=== PATIENT | male | born 1945 | race Caucasian/White ===

== ENCOUNTER 2017-05-26 12:07 | Inpatient (IN) | payer MEDICARE, OTHER ==
[~2017-05-26] VITALS: Ht 177.8 cm; Wt 116.7 kg
[2017-05-26] MEDS: DIPHENHYDRAMINE 25 MG CAPSULE PO ONE ×2 (02:00→23:43)
[2017-05-26] MEDS ORDERED: methylPREDNISolone SOD SUCC 125 MG/2 ML IVP ONE (14:00)
[2017-05-26] MEDS ORDERED: ALBUTEROL/IPRATROPIUM 2.5MG/0.5MG, 3 ML NPPB SCH (14:00)
[2017-05-26] MEDS ORDERED: SODIUM CHLORIDE FLUSH 10ML SYR IVF ONE (14:00)
[2017-05-26] MEDS ORDERED: ALBUTEROL/IPRATROPIUM 2.5MG/0.5MG, 3 ML ONE (14:08)
[2017-05-26] MEDS ORDERED: methylPREDNISolone SOD SUCC 125 MG/2 ML ONE (14:17)
[2017-05-26 14:22] LABS: BASOPHILS # (AUTO) 0.01 x10^3/uL (0-0.1); BASOPHILS % (AUTO) 0 % (0-1); EOSINOPHILS # (AUTO) 0.04 x10^3/uL (0-0.4); EOSINOPHILS % (AUTO) 1 % (1-7); LYMPHOCYTES # (AUTO) 0.84 x10^3/uL (1-3.4); LYMPHOCYTES % (AUTO) 13 % (22-44); MD NO; MEAN CORPUSCULAR HEMOGLOBIN 32.8 pg (27.5-34.5); MEAN CORPUSCULAR HGB CONC 33.4 g/dL (33.2-36.2); MEAN PLATELET VOLUME 7.4 fL (7.4-10.4); MONOCYTES # (AUTO) 0.76 x10^3/uL (0.2-0.8); MONOCYTES % (AUTO) 11 % (2-9); NEUTROPHILS # (AUTO) 5.09 x10^3/uL (1.8-6.8); NEUTROPHILS % (AUTO) 76 % (42-75); PLATELET COUNT 188 x10^3/uL (130-400); RED BLOOD COUNT 4.48 x10^6/uL (4.38-5.82); RED CELL DISTRIBUTION WIDTH 14.3 % (9.4-14.8)
[2017-05-26] MEDS ORDERED: ATOR-2 PO (14:27)
[2017-05-26] MEDS ORDERED: METO-95 PO (14:27)
[2017-05-26] MEDS ORDERED: AMLO5TAB2 PO (14:27)
[2017-05-26 14:31] LABS: INTERNATIONAL NORMALIZED RATIO 1.09 (0.93-1.1); PROTHROMBIN TIME 11.3 Seconds (9.6-11.5)
[2017-05-26 14:33] LABS: ALBUMIN 3.4 g/dL (3.4-5.0); CALCIUM 9.2 mg/dL (8.5-10.1); CHLORIDE 107 mmol/L (98-107); CREATININE 0.67 mg/dL (0.7-1.3)
[2017-05-26 14:36] LABS: TROPONIN I < 0.015 ng/mL (0.000-0.045)
[2017-05-26 14:38] LABS: ANION GAP 6 mmol/L (5-15)
[2017-05-26] MEDS ORDERED: CEFTRIAXONE PMX 1GM/50ML 50 ML IVPB ONE (16:00)
[2017-05-26] MEDS ORDERED: AZITHROMYCIN 500 MG in SODIUM CHLORIDE 0.9% 250 ML IVPB ONE (16:00)
[2017-05-26] MEDS ORDERED: SODIUM CHLORIDE FLUSH 10ML SYR IVF PRN (16:30)
[2017-05-26] MEDS: SODIUM CHLORIDE 0.9% 1,000 ML IV SCH (16:43)
[2017-05-26] MEDS ORDERED: LABETALOL 5MG/ML, 20ML IVPush PRN (17:00)
[2017-05-26] MEDS ORDERED: POLYETHYLENE GLYCOL 17 GM PACKET PO PRN (17:00)
[2017-05-26] MEDS ORDERED: ONDANSETRON 2MG/ML, 2ML IVPush PRN (17:00)
[2017-05-26] MEDS ORDERED: morphine SULFATE 10 MG/ML, 1ML IVPush PRN (17:00)
[2017-05-26] MEDS ORDERED: BISACODYL 10 MG SUPP PR PRN (17:00)
[2017-05-26] MEDS ORDERED: ENALAPRILAT 1.25 MG/ML, 2ML IVPush PRN (17:00)
[2017-05-26] MEDS ORDERED: HYDROcodone/APAP 5/325 TABLET PO PRN (17:00)
[2017-05-26] MEDS ORDERED: OMNIPAQUE 350 MG/ML, 75ML BOTTLE ONE (17:27)
[2017-05-26] MEDS: ATORVASTATIN 80 MG TABLET PO SCH ×2 (21:00→22:02)
[2017-05-26 21:34] VITALS: BP 170/84
[2017-05-26] MEDS: methylPREDNISolone SOD SUCC 125 MG/2 ML IVPush SCH (22:02)
[2017-05-26] MEDS: ENOXAPARIN 40 MG/0.4 ML SQ SCH (22:03)
[2017-05-26] MEDS: GUAIFENESIN/DM 200-20MG, 10ML UDC PO PRN (22:03)
[2017-05-26 22:30] VITALS: BP 168/92
[2017-05-26] MEDS: ALBUTEROL SULFATE 2.5 MG/3 ML NPPB PRN (22:32)
[2017-05-26] MEDS: ACETAMINOPHEN 325 MG TABLET PO PRN (23:43)
[2017-05-27 03:00] VITALS: BP 189/95
[2017-05-27] MEDS: methylPREDNISolone SOD SUCC 125 MG/2 ML IVPush SCH ×4 (04:19→21:32)
[2017-05-27 05:37] LABS: BASOPHILS % (AUTO) 0 % (0-1); EOSINOPHILS % (AUTO) 0 % (1-7); LYMPHOCYTES # (AUTO) 0.34 x10^3/uL (1-3.4); LYMPHOCYTES % (AUTO) 6 % (22-44); MD NO; MEAN CORPUSCULAR HGB CONC 33.6 g/dL (33.2-36.2); MEAN CORPUSCULAR VOLUME 98.4 fL (81-97); MEAN PLATELET VOLUME 7.4 fL (7.4-10.4); MONOCYTES # (AUTO) 0.07 x10^3/uL (0.2-0.8); MONOCYTES % (AUTO) 1 % (2-9); NEUTROPHILS # (AUTO) 5.11 x10^3/uL (1.8-6.8); NEUTROPHILS % (AUTO) 92 % (42-75); PLATELET COUNT 176 x10^3/uL (130-400); RED BLOOD COUNT 4.17 x10^6/uL (4.38-5.82); RED CELL DISTRIBUTION WIDTH 13.8 % (9.4-14.8)
[2017-05-27 05:41] LABS: CHLORIDE 107 mmol/L (98-107)
[2017-05-27 05:49] LABS: ALANINE AMINOTRANSFERASE 27 U/L (12-78); ALKALINE PHOSPHATASE 79 U/L (45-117); ANION GAP 6 mmol/L (5-15); BILIRUBIN,TOTAL 0.4 mg/dL (0.2-1.0); CALCIUM 8.9 mg/dL (8.5-10.1); CREATININE 0.69 mg/dL (0.7-1.3); TOTAL PROTEIN 6.4 g/dL (6.4-8.2)
[2017-05-27 05:56] LABS: MICROSCOPIC NOT IND
[2017-05-27 05:59] VITALS: BP 147/77
[2017-05-27 05:59] LABS: CULTURE INDICATED? NO
[2017-05-27] MEDS ORDERED: ALBUTEROL/IPRATROPIUM 2.5MG/0.5MG, 3 ML NPPB SCH (07:00)
[2017-05-27] MEDS: SODIUM CHLORIDE 0.9% 1,000 ML IV SCH (09:35)
[2017-05-27] MEDS: ASPIRIN 81 MG TABLET CHEW PO SCH (09:35)
[2017-05-27] MEDS: DOCUSATE 100 MG CAPSULE PO SCH (09:35)
[2017-05-27] MEDS: METOPROLOL SUCCINATE 100 MG TAB.ER.24H PO SCH (09:36)
[2017-05-27] MEDS: AMLODIPINE 5 MG TABLET PO SCH (09:36)
[2017-05-27 09:40] VITALS: BP 154/57
[2017-05-27 13:34] VITALS: BP 159/76
[2017-05-27] MEDS: AZITHROMYCIN 500 MG in SODIUM CHLORIDE 0.9% 250 ML IV SCH (17:02)
[2017-05-27] MEDS: ENOXAPARIN 40 MG/0.4 ML SQ SCH (17:49)
[2017-05-27 20:00] VITALS: BP 157/72
[2017-05-27] MEDS: ATORVASTATIN 80 MG TABLET PO SCH (21:32)
[2017-05-27] MEDS: CEFTRIAXONE 1,000 MG in DEXTROSE 5% 50 ML IV SCH (21:32)
[2017-05-27] MEDS ORDERED: DIPHENHYDRAMINE 25 MG CAPSULE ONE (22:22)
[2017-05-27] MEDS: ACETAMINOPHEN 325 MG TABLET PO PRN (22:28)
[2017-05-27] MEDS: DIPHENHYDRAMINE 25 MG CAPSULE PO PRN (22:29)
[2017-05-27] MEDS: ALBUTEROL SULFATE 2.5 MG/3 ML NPPB PRN (23:44)
[2017-05-28 04:06] VITALS: BP 169/81
[2017-05-28] MEDS: methylPREDNISolone SOD SUCC 125 MG/2 ML IVPush SCH ×4 (04:14→21:01)
[2017-05-28 05:31] LABS: ANION GAP 4 mmol/L (5-15); CALCIUM 8.9 mg/dL (8.5-10.1); CHLORIDE 106 mmol/L (98-107); CREATININE 0.71 mg/dL (0.7-1.3)
[2017-05-28 05:33] LABS: BASOPHILS % (AUTO) 0 % (0-1); EOSINOPHILS % (AUTO) 0 % (1-7); LYMPHOCYTES # (AUTO) 0.43 x10^3/uL (1-3.4); LYMPHOCYTES % (AUTO) 4 % (22-44); MD NO; MEAN CORPUSCULAR HEMOGLOBIN 32.7 pg (27.5-34.5); MEAN CORPUSCULAR HGB CONC 33.1 g/dL (33.2-36.2); MEAN CORPUSCULAR VOLUME 98.8 fL (81-97); MEAN PLATELET VOLUME 7.2 fL (7.4-10.4); MONOCYTES # (AUTO) 0.29 x10^3/uL (0.2-0.8); MONOCYTES % (AUTO) 2 % (2-9); NEUTROPHILS # (AUTO) 11.09 x10^3/uL (1.8-6.8); NEUTROPHILS % (AUTO) 94 % (42-75); PLATELET COUNT 193 x10^3/uL (130-400); RED BLOOD COUNT 4.27 x10^6/uL (4.38-5.82); RED CELL DISTRIBUTION WIDTH 14.1 % (9.4-14.8)
[2017-05-28 08:30] VITALS: BP 158/74
[2017-05-28] MEDS: LISINOPRIL 10 MG TABLET PO SCH (09:18)
[2017-05-28] MEDS: DOCUSATE 100 MG CAPSULE PO SCH (09:18)
[2017-05-28] MEDS: ASPIRIN 81 MG TABLET CHEW PO SCH (09:18)
[2017-05-28] MEDS: AMLODIPINE 5 MG TABLET PO SCH (09:18)
[2017-05-28] MEDS: METOPROLOL SUCCINATE 100 MG TAB.ER.24H PO SCH (09:18)
[2017-05-28] MEDS: GUAIFENESIN/DM 200-20MG, 10ML UDC PO PRN (09:27)
[2017-05-28] MEDS: ALBUTEROL SULFATE 2.5 MG/3 ML NPPB PRN (11:49)
[2017-05-28 14:45] VITALS: BP 143/63
[2017-05-28] MEDS: ALBUTEROL/IPRATROPIUM 2.5MG/0.5MG, 3 ML NPPB SCH ×2 (15:49→19:57)
[2017-05-28] MEDS: ENOXAPARIN 40 MG/0.4 ML SQ SCH (16:14)
[2017-05-28] MEDS: AZITHROMYCIN 500 MG in SODIUM CHLORIDE 0.9% 250 ML IV SCH (16:15)
[2017-05-28 19:26] VITALS: BP 162/72
[2017-05-28] MEDS: ATORVASTATIN 80 MG TABLET PO SCH (21:01)
[2017-05-28] MEDS: ACETAMINOPHEN 325 MG TABLET PO PRN (21:01)
[2017-05-28] MEDS: CEFTRIAXONE 1,000 MG in DEXTROSE 5% 50 ML IV SCH (21:01)
[2017-05-28] MEDS: DIPHENHYDRAMINE 25 MG CAPSULE PO PRN (21:02)
[2017-05-29] MEDS: ALBUTEROL SULFATE 2.5 MG/3 ML NPPB PRN (01:06)
[2017-05-29 01:32] VITALS: BP 174/63
[2017-05-29] MEDS: methylPREDNISolone SOD SUCC 125 MG/2 ML IVPush SCH ×3 (04:08→16:00)
[2017-05-29] MEDS: ALBUTEROL/IPRATROPIUM 2.5MG/0.5MG, 3 ML NPPB SCH ×4 (07:00→14:20)
[2017-05-29 08:10] VITALS: BP 180/92
[2017-05-29 09:30] VITALS: BP 152/76
[2017-05-29] MEDS: ASPIRIN 81 MG TABLET CHEW PO SCH (09:38)
[2017-05-29] MEDS: AMLODIPINE 5 MG TABLET PO SCH (09:38)
[2017-05-29] MEDS: LISINOPRIL 10 MG TABLET PO SCH (09:38)
[2017-05-29] MEDS: DOCUSATE 100 MG CAPSULE PO SCH (09:38)
[2017-05-29] MEDS: METOPROLOL SUCCINATE 100 MG TAB.ER.24H PO SCH (09:38)
[2017-05-29] MEDS ORDERED: LISI-167 PO (15:39)
[2017-05-29] MEDS ORDERED: AZIT250T PO (15:39)
[2017-05-29] MEDS ORDERED: PRED10TA PO (15:39)
[2017-05-29] MEDS ORDERED: AMOX-291 PO (15:39)
[2017-05-29] MEDS: AZITHROMYCIN 500 MG in SODIUM CHLORIDE 0.9% 250 ML IV SCH (16:00)
[2017-05-29 16:33] VITALS: BP 154/92
[2017-05-29] MEDS: ENOXAPARIN 40 MG/0.4 ML SQ SCH (17:00)
== END 2017-05-29 17:44 | disposition home or self-care (01) | DRG 189 ==
LOC: ED 16:01 → EDIP 16:02 → ED 16:14 → 4WST 20:44
PROVIDERS: ADMIT Hospitalist; ATTEND Hospitalist
DX: J96.01 Acute respiratory failure with hypoxia (principal); J15.9 Unspecified bacterial pneumonia; J90 Pleural effusion, not elsewhere classified; I07.1 Rheumatic tricuspid insufficiency; I11.9 Hypertensive heart disease without heart failure; I35.8 Other nonrheumatic aortic valve disorders; J44.0 Chronic obstructive pulmonary disease with (acute) lower respiratory infection; J44.1 Chronic obstructive pulmonary disease with (acute) exacerbation; E78.5 Hyperlipidemia, unspecified; I73.9 Peripheral vascular disease, unspecified; K59.09 Other constipation; R32 Unspecified urinary incontinence; Z80.0 Family history of malignant neoplasm of digestive organs; Z87.01 Personal history of pneumonia (recurrent)
CPT/HCPCS: 36415; 71046; 71260; 80048; 80053; 81003; 82040; 83605; 83880; 84145; 84484; 85025; 85610; 85730; 87040; 93005; 93306; 94640; 96365; 96366; 96368; 96375; J0456; J0696; J1650; J7613; J7620; Q9967; J2930; J7030; J7050; Q0163

== ENCOUNTER 2017-05-30 21:03 | Inpatient (IN) | payer MEDICARE, OTHER ==
[~2017-05-30] VITALS: Ht 177.8 cm; Wt 168.6 kg
[~2017-05-30 21:03] MED LIST: AMLO5TAB2 PO; AMOX-291 PO; ATOR-2 PO; AZIT250T PO; ETOMIDATE 20 MG/10 ML ONE; LISI-167 PO; METO-95 PO; MIDAZOLAM 1 MG/ML, 5ML ONE; PRED10TA PO; PROPOFOL 10 MG/ML, 100ML IV ONE; SUCCINYLCHOLINE 20 MG/ML, 10ML ONE
[2017-05-30] MEDS ORDERED: SODIUM CHLORIDE 0.9% 1,000 ML IV ONE (21:19)
[2017-05-30] MEDS ORDERED: SODIUM CHLORIDE FLUSH 10ML SYR IVF ONE (21:30)
[2017-05-30] MEDS ORDERED: ALBUTEROL/IPRATROPIUM 2.5MG/0.5MG, 3 ML NPPB PRN (21:30)
[2017-05-30] MEDS ORDERED: methylPREDNISolone SOD SUCC 125 MG/2 ML IVP ONE (21:30)
[2017-05-30] MEDS: ALBUTEROL/IPRATROPIUM 2.5MG/0.5MG, 3 ML NPPB SCH (21:47)
[2017-05-30] MEDS ORDERED: methylPREDNISolone SOD SUCC 125 MG/2 ML ONE (21:49)
[2017-05-30 21:54] LABS: BASOPHILS # (AUTO) 0.01 x10^3/uL (0-0.1); BASOPHILS % (AUTO) 0 % (0-1); EOSINOPHILS % (AUTO) 0 % (1-7); LYMPHOCYTES % (AUTO) 5 % (22-44); MD NO; MEAN CORPUSCULAR HEMOGLOBIN 32.5 pg (27.5-34.5); MEAN CORPUSCULAR HGB CONC 32.6 g/dL (33.2-36.2); MEAN CORPUSCULAR VOLUME 99.5 fL (81-97); MEAN PLATELET VOLUME 7.3 fL (7.4-10.4); MONOCYTES # (AUTO) 0.66 x10^3/uL (0.2-0.8); MONOCYTES % (AUTO) 5 % (2-9); NEUTROPHILS # (AUTO) 11.97 x10^3/uL (1.8-6.8); NEUTROPHILS % (AUTO) 90 % (42-75); PLATELET COUNT 249 x10^3/uL (130-400); RED BLOOD COUNT 4.79 x10^6/uL (4.38-5.82); RED CELL DISTRIBUTION WIDTH 14.3 % (9.4-14.8)
[2017-05-30 21:55] LABS: RAPID INFLUENZA A Negative (Negative); RAPID INFLUENZA B Negative (Negative)
[2017-05-30] MEDS ORDERED: CEFEPIME 1 GM in DEXTROSE 5% 50 ML IV ONE (22:00)
[2017-05-30] MEDS ORDERED: AZITHROMYCIN 500 MG in SODIUM CHLORIDE 0.9% 250 ML IV ONE (22:00)
[2017-05-30 22:02] LABS: INTERNATIONAL NORMALIZED RATIO 1.16 (0.93-1.1)
[2017-05-30 22:06] LABS: ALANINE AMINOTRANSFERASE 158 U/L (12-78); ALBUMIN 3.6 g/dL (3.4-5.0); CREATININE 0.76 mg/dL (0.7-1.3)
[2017-05-30 22:11] LABS: ALKALINE PHOSPHATASE 78 U/L (45-117); BILIRUBIN,TOTAL 0.7 mg/dL (0.2-1.0); TOTAL PROTEIN 6.8 g/dL (6.4-8.2); TROPONIN I 0.053 ng/mL (0.000-0.045)
[2017-05-30 22:15] LABS: ANION GAP 3 mmol/L (5-15); CHLORIDE 105 mmol/L (98-107)
[2017-05-30] MEDS ORDERED: ETOMIDATE 20 MG/10 ML IVPush ONE (22:30)
[2017-05-30] MEDS ORDERED: ETOMIDATE 20 MG/10 ML IV ONE (22:30)
[2017-05-30] MEDS ORDERED: SUCCINYLCHOLINE 20 MG/ML, 10ML IVPush ONE (22:30)
[2017-05-30] MEDS: PROPOFOL 100 ML IV PRN (22:40)
[2017-05-30] MEDS ORDERED: SODIUM CHLORIDE FLUSH 10ML SYR IVF PRN (23:00)
[2017-05-30] MEDS ORDERED: SODIUM CHLORIDE 0.9% 1,000ML IVBOLUS ONE (23:00)
[2017-05-30] MEDS ORDERED: MIDAZOLAM 1 MG/ML, 5ML IVP ONE (23:00)
[2017-05-30] MEDS ORDERED: MIDAZOLAM 1 MG/ML, 5ML IVPush ONE (23:30)
[2017-05-31] MEDS: MIDAZOLAM HCL 25 MG in SODIUM CHLORIDE 0.9% 245 ML IV PRN ×3 (00:47→21:47)
[2017-05-31] MEDS ORDERED: SODIUM CHLORIDE 0.9% 1,000 ML IV SCH (01:16)
[2017-05-31] MEDS ORDERED: VANCOMYCIN PMX 1GM/200ML 200 ML IV ONE (01:30)
[2017-05-31] MEDS ORDERED: ONDANSETRON 2MG/ML, 2ML IVPush PRN (01:30)
[2017-05-31] MEDS ORDERED: ACETAMINOPHEN 325 MG TABLET PO PRN (01:30)
[2017-05-31] MEDS ORDERED: DOCUSATE 100 MG CAPSULE PO PRN (01:30)
[2017-05-31] MEDS ORDERED: VANCOMYCIN PER PHARMACY MC PRN (01:30)
[2017-05-31] MEDS ORDERED: VANCOMYCIN 2,200 MG in SODIUM CHLORIDE 0.9% 500 ML IV SCH (02:00)
[2017-05-31] MEDS ORDERED: PHARMACOKINETIC MONITORING MC PRN (02:00)
[2017-05-31] MEDS ORDERED: PHARMACOKINETIC CONSULTATION MC ONE (02:00)
[2017-05-31 02:46] VITALS: BP 162/73
[2017-05-31 02:46] LABS: FREE T4 (FREE THYROXINE) 0.88 ng/dL (0.76-1.46); HEMOGLOBIN A1C 6.3 % (4.2-6.3); THYROID STIMULATING HORMONE 0.553 mIU/L (0.358-3.740)
[2017-05-31] MEDS ORDERED: LIDOCAINE-MPF 1%, 2ML ENDO PRN (03:30)
[2017-05-31] MEDS: SODIUM CHLORIDE 0.9% 1,000 ML IV SCH ×2 (03:30→17:45)
[2017-05-31] MEDS: ALBUTEROL/IPRATROPIUM 2.5MG/0.5MG, 3 ML NPPB SCH ×5 (03:46→18:45)
[2017-05-31 04:00] VITALS: BP 139/68
[2017-05-31] MEDS: PIPERACILLIN/TAZO/PMX 3.375GM 50 ML IV SCH ×4 (04:00→22:13)
[2017-05-31] MEDS: methylPREDNISolone SOD SUCC 125 MG/2 ML IVPush SCH ×4 (04:09→22:14)
[2017-05-31] MEDS: HEPARIN 5,000 UNITS/ML, 1ML SQ SCH ×3 (04:10→20:26)
[2017-05-31] MEDS: hydrALAzine 20 MG/ML, 1ML IVPush PRN (04:30)
[2017-05-31] MEDS: PROPOFOL 100 ML IV PRN ×6 (04:40→21:03)
[2017-05-31 04:51] LABS: TROPONIN I 0.045 ng/mL (0.000-0.045)
[2017-05-31 07:28] LABS: BASOPHILS # (AUTO) 0.01 x10^3/uL (0-0.1); BASOPHILS % (AUTO) 0 % (0-1); EOSINOPHILS % (AUTO) 0 % (1-7); LYMPHOCYTES # (AUTO) 0.45 x10^3/uL (1-3.4); LYMPHOCYTES % (AUTO) 9 % (22-44); MD NO; MEAN CORPUSCULAR HEMOGLOBIN 32.5 pg (27.5-34.5); MEAN CORPUSCULAR HGB CONC 33.4 g/dL (33.2-36.2); MEAN CORPUSCULAR VOLUME 97.3 fL (81-97); MEAN PLATELET VOLUME 7.2 fL (7.4-10.4); MONOCYTES # (AUTO) 0.28 x10^3/uL (0.2-0.8); MONOCYTES % (AUTO) 5 % (2-9); NEUTROPHILS # (AUTO) 4.43 x10^3/uL (1.8-6.8); NEUTROPHILS % (AUTO) 86 % (42-75); PLATELET COUNT 172 x10^3/uL (130-400); RED BLOOD COUNT 4.12 x10^6/uL (4.38-5.82); RED CELL DISTRIBUTION WIDTH 14.6 % (9.4-14.8)
[2017-05-31 07:29] LABS: HEMOGRAM NOTE RECHECKED
[2017-05-31 07:33] LABS: ALBUMIN 2.8 g/dL (3.4-5.0); ANION GAP 6 mmol/L (5-15); CALCIUM 8.4 mg/dL (8.5-10.1); CHLORIDE 107 mmol/L (98-107); CREATININE 0.71 mg/dL (0.7-1.3)
[2017-05-31] MEDS: FAMOTIDINE 20 MG/2 ML IVPush SCH ×2 (10:24→20:26)
[2017-05-31] MEDS: SENNA/DOCUSATE TABLET PO SCH (10:24)
[2017-05-31 11:04] LABS: TROPONIN I 0.034 ng/mL (0.000-0.045)
[2017-05-31] MEDS: QUETIAPINE 25MG TABLET PO SCH ×2 (12:09→20:26)
[2017-05-31 15:11] LABS: CULTURE INDICATED? NO; MICROSCOPIC NOT IND
[2017-05-31] MEDS: morphine SULFATE 10 MG/ML, 1ML IVPush PRN (17:38)
[2017-05-31] MEDS: ATORVASTATIN 80 MG TABLET PO SCH (20:26)
[2017-06-01] MEDS: PROPOFOL 100 ML IV PRN ×5 (01:07→21:32)
[2017-06-01 04:00] VITALS: BP 168/57
[2017-06-01] MEDS: QUETIAPINE 25MG TABLET PO SCH ×3 (04:19→20:53)
[2017-06-01] MEDS: methylPREDNISolone SOD SUCC 125 MG/2 ML IVPush SCH ×4 (04:19→21:29)
[2017-06-01] MEDS: HEPARIN 5,000 UNITS/ML, 1ML SQ SCH ×3 (04:20→20:54)
[2017-06-01] MEDS: PIPERACILLIN/TAZO/PMX 3.375GM 50 ML IV SCH ×4 (04:20→21:29)
[2017-06-01] MEDS: hydrALAzine 20 MG/ML, 1ML IVPush PRN ×2 (04:30→21:05)
[2017-06-01] MEDS: SODIUM CHLORIDE 0.9% 1,000 ML IV SCH ×3 (04:35→21:06)
[2017-06-01] MEDS: VANCOMYCIN 2,000 MG in SODIUM CHLORIDE 0.9% 500 ML IV SCH (04:49)
[2017-06-01 04:58] LABS: BASOPHILS % (AUTO) 0 % (0-1); EOSINOPHILS % (AUTO) 0 % (1-7); LYMPHOCYTES # (AUTO) 0.34 x10^3/uL (1-3.4); LYMPHOCYTES % (AUTO) 7 % (22-44); MD NO; MEAN CORPUSCULAR HEMOGLOBIN 32.9 pg (27.5-34.5); MEAN CORPUSCULAR HGB CONC 33.9 g/dL (33.2-36.2); MEAN CORPUSCULAR VOLUME 97.2 fL (81-97); MEAN PLATELET VOLUME 7.9 fL (7.4-10.4); MONOCYTES # (AUTO) 0.22 x10^3/uL (0.2-0.8); MONOCYTES % (AUTO) 5 % (2-9); NEUTROPHILS # (AUTO) 3.95 x10^3/uL (1.8-6.8); NEUTROPHILS % (AUTO) 88 % (42-75); PLATELET COUNT 170 x10^3/uL (130-400); RED BLOOD COUNT 3.99 x10^6/uL (4.38-5.82); RED CELL DISTRIBUTION WIDTH 14.4 % (9.4-14.8)
[2017-06-01 05:09] LABS: ALBUMIN 2.5 g/dL (3.4-5.0); ANION GAP 7 mmol/L (5-15); CALCIUM 8.1 mg/dL (8.5-10.1); CHLORIDE 109 mmol/L (98-107)
[2017-06-01 05:14] LABS: ALANINE AMINOTRANSFERASE 79 U/L (12-78); ALKALINE PHOSPHATASE 51 U/L (45-117); BILIRUBIN,TOTAL 0.6 mg/dL (0.2-1.0); CHOL/HDL RATIO 3.9; CHOLESTEROL, TOTAL 122 mg/dL (140-239); CREATININE 0.73 mg/dL (0.7-1.3); HDL CHOL % 25 % (26-37); HDL CHOLESTEROL (DIRECT) 31 mg/dL (40-60); LDL CHOLESTEROL,CALCULATED 51 mg/dL (54-169); LDL/HDL RATIO 1.6 (0.5-3.0); TRIGLYCERIDES 201 mg/dL (50-200); VLDL CHOLESTEROL 40 mg/dL (0-25)
[2017-06-01] MEDS: ALBUTEROL/IPRATROPIUM 2.5MG/0.5MG, 3 ML NPPB SCH ×5 (06:47→23:00)
[2017-06-01] MEDS: FAMOTIDINE 20 MG/2 ML IVPush SCH ×2 (09:20→20:54)
[2017-06-01] MEDS: SENNA/DOCUSATE TABLET PO SCH (09:20)
[2017-06-01] MEDS: THIAMINE 100 MG, FOLIC ACID 1 MG, MVI ADULT 10 ML in SODIUM CHLORIDE 0.9% 1,000 ML IV SCH (09:56)
[2017-06-01] MEDS: LISINOPRIL 10 MG TABLET PO SCH (09:57)
[2017-06-01] MEDS: AMLODIPINE 5 MG TABLET PO SCH (09:57)
[2017-06-01] MEDS: ATORVASTATIN 80 MG TABLET PO SCH (20:53)
[2017-06-01] MEDS: OXYcodone IR 5MG TABLET PO PRN (21:05)
[2017-06-02] MEDS: PROPOFOL 100 ML IV PRN ×7 (01:15→20:30)
[2017-06-02] MEDS: OXYcodone IR 5MG TABLET PO PRN ×2 (01:17→21:25)
[2017-06-02] MEDS: POLYETHYLENE GLYCOL 17 GM PACKET PO PRN (01:17)
[2017-06-02] MEDS: ALBUTEROL/IPRATROPIUM 2.5MG/0.5MG, 3 ML INLINE SCH ×3 (02:22→10:52)
[2017-06-02 04:00] VITALS: BP 147/56
[2017-06-02] MEDS: PIPERACILLIN/TAZO/PMX 3.375GM 50 ML IV SCH ×4 (04:15→21:47)
[2017-06-02] MEDS: methylPREDNISolone SOD SUCC 125 MG/2 ML IVPush SCH ×4 (04:16→21:34)
[2017-06-02] MEDS: QUETIAPINE 25MG TABLET PO SCH ×3 (04:16→21:18)
[2017-06-02] MEDS: HEPARIN 5,000 UNITS/ML, 1ML SQ SCH ×3 (04:16→21:19)
[2017-06-02] MEDS: VANCOMYCIN 2,000 MG in SODIUM CHLORIDE 0.9% 500 ML IV SCH (04:52)
[2017-06-02 04:53] LABS: BASOPHILS # (AUTO) 0.01 x10^3/uL (0-0.1); BASOPHILS % (AUTO) 0 % (0-1); EOSINOPHILS % (AUTO) 0 % (1-7); LYMPHOCYTES # (AUTO) 0.27 x10^3/uL (1-3.4); LYMPHOCYTES % (AUTO) 4 % (22-44); MD NO; MEAN CORPUSCULAR HEMOGLOBIN 33.1 pg (27.5-34.5); MEAN CORPUSCULAR HGB CONC 33.6 g/dL (33.2-36.2); MEAN CORPUSCULAR VOLUME 98.7 fL (81-97); MEAN PLATELET VOLUME 8.2 fL (7.4-10.4); MONOCYTES # (AUTO) 0.22 x10^3/uL (0.2-0.8); MONOCYTES % (AUTO) 3 % (2-9); NEUTROPHILS # (AUTO) 6.13 x10^3/uL (1.8-6.8); NEUTROPHILS % (AUTO) 92 % (42-75); PLATELET COUNT 187 x10^3/uL (130-400); RED BLOOD COUNT 3.96 x10^6/uL (4.38-5.82); RED CELL DISTRIBUTION WIDTH 14.4 % (9.4-14.8)
[2017-06-02 04:54] LABS: ALBUMIN 2.3 g/dL (3.4-5.0); ANION GAP 5 mmol/L (5-15); CALCIUM 7.5 mg/dL (8.5-10.1); CHLORIDE 111 mmol/L (98-107)
[2017-06-02 04:59] LABS: ALANINE AMINOTRANSFERASE 60 U/L (12-78); ALKALINE PHOSPHATASE 49 U/L (45-117); BILIRUBIN,TOTAL 0.5 mg/dL (0.2-1.0); CREATININE 0.78 mg/dL (0.7-1.3); TOTAL PROTEIN 4.8 g/dL (6.4-8.2)
[2017-06-02] MEDS: ENALAPRILAT 1.25 MG/ML, 2ML IVPush PRN ×2 (05:39→06:39)
[2017-06-02] MEDS: SODIUM CHLORIDE 0.9% 1,000 ML IV SCH (07:10)
[2017-06-02] MEDS: SENNA/DOCUSATE TABLET PO SCH (07:14)
[2017-06-02] MEDS: LISINOPRIL 10 MG TABLET PO SCH (07:14)
[2017-06-02] MEDS: FAMOTIDINE 20 MG/2 ML IVPush SCH ×2 (07:14→21:18)
[2017-06-02] MEDS: AMLODIPINE 5 MG TABLET PO SCH (07:14)
[2017-06-02] MEDS ORDERED: FUROSEMIDE 20 MG/2 ML IV ONE (08:00)
[2017-06-02 10:20] LABS: ALBUMIN 2.6 g/dL (3.4-5.0)
[2017-06-02] MEDS: THIAMINE 100 MG, FOLIC ACID 1 MG, MVI ADULT 10 ML in SODIUM CHLORIDE 0.9% 1,000 ML IV SCH (10:29)
[2017-06-02] MEDS: hydrALAzine 20 MG/ML, 1ML IVPush PRN (10:29)
[2017-06-02] MEDS ORDERED: LIDOCAINE 1%, 10ML ONE (10:36)
[2017-06-02] MEDS: ALBUTEROL/IPRATROPIUM 2.5MG/0.5MG, 3 ML NPPB SCH ×3 (13:00→23:45)
[2017-06-02] MEDS ORDERED: ALBUTEROL/IPRATROPIUM 2.5MG/0.5MG, 3 ML NPPB PRN (13:00)
[2017-06-02 13:02] LABS: CELLS COUNTED 127
[2017-06-02] MEDS: ACETAMINOPHEN 650 MG/20.3 ML UDC PO PRN (13:58)
[2017-06-02] MEDS ORDERED: LIDOCAINE 2%, 20ML ONE (14:33)
[2017-06-02] MEDS: ATORVASTATIN 80 MG TABLET PO SCH (21:18)
[2017-06-02 22:08] LABS: CULTURE INDICATED? NO; MICROSCOPIC NOT IND
[2017-06-03] MEDS: PROPOFOL 100 ML IV PRN ×8 (00:54→22:28)
[2017-06-03] MEDS: OXYcodone IR 5MG TABLET PO PRN (02:51)
[2017-06-03] MEDS: POLYETHYLENE GLYCOL 17 GM PACKET PO PRN (02:51)
[2017-06-03] MEDS: ALBUTEROL/IPRATROPIUM 2.5MG/0.5MG, 3 ML NPPB SCH ×6 (03:20→23:40)
[2017-06-03 04:00] VITALS: BP 119/56
[2017-06-03 04:22] LABS: BASOPHILS # (AUTO) 0.01 x10^3/uL (0-0.1); BASOPHILS % (AUTO) 0 % (0-1); EOSINOPHILS % (AUTO) 0 % (1-7); LYMPHOCYTES # (AUTO) 0.23 x10^3/uL (1-3.4); LYMPHOCYTES % (AUTO) 5 % (22-44); MD NO; MEAN CORPUSCULAR HEMOGLOBIN 32.7 pg (27.5-34.5); MEAN CORPUSCULAR HGB CONC 33.1 g/dL (33.2-36.2); MEAN CORPUSCULAR VOLUME 98.7 fL (81-97); MEAN PLATELET VOLUME 7.9 fL (7.4-10.4); MONOCYTES # (AUTO) 0.22 x10^3/uL (0.2-0.8); MONOCYTES % (AUTO) 4 % (2-9); NEUTROPHILS # (AUTO) 4.49 x10^3/uL (1.8-6.8); NEUTROPHILS % (AUTO) 91 % (42-75); PLATELET COUNT 183 x10^3/uL (130-400); RED CELL DISTRIBUTION WIDTH 14.6 % (9.4-14.8)
[2017-06-03 04:29] LABS: ALANINE AMINOTRANSFERASE 51 U/L (12-78); ALBUMIN 2.4 g/dL (3.4-5.0); ANION GAP 7 mmol/L (5-15); CALCIUM 7.9 mg/dL (8.5-10.1); CHLORIDE 109 mmol/L (98-107); CREATININE 1.06 mg/dL (0.7-1.3); TRIGLYCERIDES 234 mg/dL (50-200)
[2017-06-03 04:32] LABS: ALKALINE PHOSPHATASE 50 U/L (45-117); BILIRUBIN,TOTAL 0.4 mg/dL (0.2-1.0); VANCOMYCIN,TROUGH 5.9 mcg/mL (5.0-10.0)
[2017-06-03] MEDS: methylPREDNISolone SOD SUCC 125 MG/2 ML IVPush SCH ×4 (04:35→22:22)
[2017-06-03] MEDS: PIPERACILLIN/TAZO/PMX 3.375GM 50 ML IV SCH ×4 (04:35→22:23)
[2017-06-03] MEDS: HEPARIN 5,000 UNITS/ML, 1ML SQ SCH ×3 (04:35→19:51)
[2017-06-03] MEDS: QUETIAPINE 25MG TABLET PO SCH ×3 (04:36→19:51)
[2017-06-03] MEDS: VANCOMYCIN 2,400 MG in SODIUM CHLORIDE 0.9% 500 ML IV SCH (06:31)
[2017-06-03 08:17] LABS: FOLATE LEVEL > 20.0 ng/mL (3.1-17.5)
[2017-06-03] MEDS ORDERED: METOPROLOL 1 MG/ML, 5ML ONE (08:34)
[2017-06-03] MEDS: FAMOTIDINE 20 MG/2 ML IVPush SCH (08:41)
[2017-06-03] MEDS: LISINOPRIL 10 MG TABLET PO SCH (08:42)
[2017-06-03] MEDS: AMLODIPINE 5 MG TABLET PO SCH (08:42)
[2017-06-03] MEDS: SENNA/DOCUSATE TABLET PO SCH (08:42)
[2017-06-03] MEDS ORDERED: METOPROLOL 1 MG/ML, 5ML IVPush ONE (09:00)
[2017-06-03] MEDS ORDERED: DIGOXIN 0.25 MG/ML, 2ML ONE (09:28)
[2017-06-03] MEDS ORDERED: DIGOXIN 0.25 MG/ML, 2ML IVPush ONE (09:30)
[2017-06-03] MEDS: THIAMINE 100 MG, FOLIC ACID 1 MG, MVI ADULT 10 ML in SODIUM CHLORIDE 0.9% 1,000 ML IV SCH (21:04)
[2017-06-03] MEDS: FAMOTIDINE 40 MG/5 ML ORAL SUSP PO SCH (21:05)
[2017-06-03] MEDS: ATORVASTATIN 80 MG TABLET PO SCH (21:10)
[2017-06-04] MEDS: PROPOFOL 100 ML IV PRN ×3 (00:50→06:45)
[2017-06-04] MEDS: morphine SULFATE 10 MG/ML, 1ML IVPush PRN (01:27)
[2017-06-04] MEDS: ALBUTEROL/IPRATROPIUM 2.5MG/0.5MG, 3 ML INLINE SCH ×2 (02:45→06:50)
[2017-06-04 03:04] LABS: CLOSTRIDIUM DIFFICILE ANTIGEN NEGATIVE; CLOSTRIDIUM DIFFICILE TOXIN NEGATIVE (Negative)
[2017-06-04] MEDS: PIPERACILLIN/TAZO/PMX 3.375GM 50 ML IV SCH ×4 (03:41→22:36)
[2017-06-04] MEDS: methylPREDNISolone SOD SUCC 125 MG/2 ML IVPush SCH ×4 (03:42→22:36)
[2017-06-04] MEDS: HEPARIN 5,000 UNITS/ML, 1ML SQ SCH ×3 (03:42→19:30)
[2017-06-04] MEDS: QUETIAPINE 25MG TABLET PO SCH (03:42)
[2017-06-04 04:00] VITALS: BP 177/75
[2017-06-04 04:35] LABS: BASOPHILS # (AUTO) 0.01 x10^3/uL (0-0.1); BASOPHILS % (AUTO) 0 % (0-1); EOSINOPHILS % (AUTO) 0 % (1-7); LYMPHOCYTES # (AUTO) 0.32 x10^3/uL (1-3.4); LYMPHOCYTES % (AUTO) 5 % (22-44); MD NO; MEAN CORPUSCULAR HGB CONC 32.6 g/dL (33.2-36.2); MEAN CORPUSCULAR VOLUME 98.3 fL (81-97); MEAN PLATELET VOLUME 8.1 fL (7.4-10.4); MONOCYTES # (AUTO) 0.28 x10^3/uL (0.2-0.8); MONOCYTES % (AUTO) 4 % (2-9); NEUTROPHILS # (AUTO) 6.26 x10^3/uL (1.8-6.8); NEUTROPHILS % (AUTO) 91 % (42-75); PLATELET COUNT 170 x10^3/uL (130-400); RED BLOOD COUNT 4.18 x10^6/uL (4.38-5.82); RED CELL DISTRIBUTION WIDTH 14.4 % (9.4-14.8)
[2017-06-04] MEDS: VANCOMYCIN 2,400 MG in SODIUM CHLORIDE 0.9% 500 ML IV SCH (06:21)
[2017-06-04] MEDS: SENNA/DOCUSATE TABLET PO SCH (08:04)
[2017-06-04] MEDS: LISINOPRIL 10 MG TABLET PO SCH (08:07)
[2017-06-04] MEDS: FAMOTIDINE 40 MG/5 ML ORAL SUSP PO SCH ×2 (08:07→21:06)
[2017-06-04] MEDS: AMLODIPINE 5 MG TABLET PO SCH (08:07)
[2017-06-04] MEDS: ALPRazolam 1MG TABLET PO SCH ×2 (08:23→08:52)
[2017-06-04] MEDS: FLUCONAZOLE 200 MG/100 ML 100 ML IV SCH (10:14)
[2017-06-04] MEDS ORDERED: RACEPINEPHRINE INH 2.25%, 0.5ML ONE (10:37)
[2017-06-04] MEDS ORDERED: ALBUTEROL/IPRATROPIUM 2.5MG/0.5MG, 3 ML NPPB PRN (11:30)
[2017-06-04] MEDS ORDERED: QUETIAPINE MC SCH (11:30)
[2017-06-04] MEDS ORDERED: QUETIAPINE 25MG TABLET PO PRN (11:30)
[2017-06-04] MEDS ORDERED: ALPRAZOLAM MC SCH (11:30)
[2017-06-04] MEDS: hydrALAzine 20 MG/ML, 1ML IVPush PRN ×2 (15:25→19:30)
[2017-06-04] MEDS ORDERED: ALBUTEROL/IPRATROPIUM 2.5MG/0.5MG, 3 ML INLINE SCH (16:00)
[2017-06-04] MEDS: ALBUTEROL/IPRATROPIUM 2.5MG/0.5MG, 3 ML NPPB SCH ×2 (16:53→19:13)
[2017-06-04] MEDS: METOPROLOL TARTRATE 50 MG TABLET PO SCH (17:06)
[2017-06-04] MEDS: ENALAPRILAT 1.25 MG/ML, 2ML IVPush PRN ×2 (17:06→23:09)
[2017-06-04] MEDS ORDERED: FUROSEMIDE 20 MG/2 ML IV ONE (18:30)
[2017-06-04] MEDS ORDERED: FUROSEMIDE 20 MG/2 ML ONE (18:34)
[2017-06-04] MEDS: THIAMINE 100 MG, FOLIC ACID 1 MG, MVI ADULT 10 ML in SODIUM CHLORIDE 0.9% 1,000 ML IV SCH (20:59)
[2017-06-04] MEDS: ATORVASTATIN 80 MG TABLET PO SCH (21:05)
[2017-06-05] MEDS: hydrALAzine 20 MG/ML, 1ML IVPush PRN ×3 (00:07→18:01)
[2017-06-05] MEDS: OXYcodone IR 5MG TABLET PO PRN (03:44)
[2017-06-05] MEDS ORDERED: QUETIAPINE 25MG TABLET PO PRN (04:00)
[2017-06-05] MEDS: PIPERACILLIN/TAZO/PMX 3.375GM 50 ML IV SCH ×4 (04:11→22:12)
[2017-06-05] MEDS: methylPREDNISolone SOD SUCC 125 MG/2 ML IVPush SCH (04:11)
[2017-06-05] MEDS: HEPARIN 5,000 UNITS/ML, 1ML SQ SCH ×3 (04:12→20:24)
[2017-06-05] MEDS ORDERED: DILTIAZEM 5 MG/ML, 5ML ONE (04:28)
[2017-06-05 04:30] VITALS: BP 132/92
[2017-06-05] MEDS ORDERED: DILTIAZEM 5 MG/ML, 5ML IVPush ONE (04:30)
[2017-06-05] MEDS ORDERED: FUROSEMIDE 20 MG/2 ML IV ONE (04:30)
[2017-06-05] MEDS ORDERED: METOPROLOL 1 MG/ML, 5ML ONE (04:41)
[2017-06-05 05:00] LABS: ALBUMIN 2.6 g/dL (3.4-5.0); ANION GAP 5 mmol/L (5-15); CALCIUM 8.1 mg/dL (8.5-10.1); CHLORIDE 110 mmol/L (98-107)
[2017-06-05] MEDS ORDERED: METOPROLOL 1 MG/ML, 5ML IVPush ONE ×2 (05:00→05:30)
[2017-06-05 05:01] LABS: BASOPHILS % (AUTO) 0 % (0-1); EOSINOPHILS % (AUTO) 0 % (1-7); LYMPHOCYTES # (AUTO) 0.33 x10^3/uL (1-3.4); LYMPHOCYTES % (AUTO) 3 % (22-44); MD NO; MEAN CORPUSCULAR HEMOGLOBIN 32.8 pg (27.5-34.5); MEAN CORPUSCULAR HGB CONC 33.4 g/dL (33.2-36.2); MEAN CORPUSCULAR VOLUME 98.4 fL (81-97); MEAN PLATELET VOLUME 8.3 fL (7.4-10.4); MONOCYTES # (AUTO) 0.43 x10^3/uL (0.2-0.8); MONOCYTES % (AUTO) 3 % (2-9); NEUTROPHILS # (AUTO) 12.11 x10^3/uL (1.8-6.8); NEUTROPHILS % (AUTO) 94 % (42-75); PLATELET COUNT 188 x10^3/uL (130-400); RED BLOOD COUNT 4.76 x10^6/uL (4.38-5.82); RED CELL DISTRIBUTION WIDTH 14.9 % (9.4-14.8)
[2017-06-05 05:03] LABS: ALANINE AMINOTRANSFERASE 57 U/L (12-78); ALKALINE PHOSPHATASE 74 U/L (45-117); BILIRUBIN,TOTAL 0.7 mg/dL (0.2-1.0); CREATININE 0.71 mg/dL (0.7-1.3); TOTAL PROTEIN 5.5 g/dL (6.4-8.2)
[2017-06-05] MEDS ORDERED: AMIODARONE 150 MG in DEXTROSE 5% 100 ML IVPB ONE (05:50)
[2017-06-05] MEDS ORDERED: FILTER 0.22 MICRON IV PRN (06:00)
[2017-06-05] MEDS: METOPROLOL TARTRATE 50 MG TABLET PO SCH ×2 (06:07→17:38)
[2017-06-05] MEDS: AMIODARONE 900 MG in DEXTROSE 5% 482 ML IV PRN (06:34)
[2017-06-05] MEDS: DEXMEDETOMIDINE 200 MCG in SODIUM CHLORIDE 0.9% 48 ML IV PRN ×3 (06:44→21:17)
[2017-06-05] MEDS: SENNA/DOCUSATE TABLET PO SCH (07:21)
[2017-06-05] MEDS: LISINOPRIL 10 MG TABLET PO SCH (07:28)
[2017-06-05] MEDS: ENALAPRILAT 1.25 MG/ML, 2ML IVPush PRN ×2 (07:28→15:00)
[2017-06-05] MEDS: AMLODIPINE 5 MG TABLET PO SCH (07:28)
[2017-06-05] MEDS: FAMOTIDINE 40 MG/5 ML ORAL SUSP PO SCH ×2 (07:28→20:43)
[2017-06-05] MEDS ORDERED: ALPRazolam 1MG TABLET PO PRN (09:00)
[2017-06-05] MEDS: FLUCONAZOLE 200 MG/100 ML 100 ML IV SCH (09:30)
[2017-06-05] MEDS: ALBUTEROL/IPRATROPIUM 2.5MG/0.5MG, 3 ML NPPB SCH ×2 (09:35→15:53)
[2017-06-05] MEDS: QUETIAPINE 25MG TABLET PO SCH ×2 (09:55→20:43)
[2017-06-05] MEDS: methylPREDNISolone SOD SUCC 40 MG/ML IVPush SCH ×2 (12:05→20:24)
[2017-06-05] MEDS: ACETAMINOPHEN 650 MG/20.3 ML UDC PO PRN (15:00)
[2017-06-05] MEDS: ATORVASTATIN 80 MG TABLET PO SCH (20:43)
[2017-06-05] MEDS: THIAMINE 100 MG, FOLIC ACID 1 MG, MVI ADULT 10 ML in SODIUM CHLORIDE 0.9% 1,000 ML IV SCH (21:07)
[2017-06-05] MEDS: ALBUTEROL/IPRATROPIUM 2.5MG/0.5MG, 3 ML INLINE PRN (23:56)
[2017-06-06] MEDS: hydrALAzine 20 MG/ML, 1ML IVPush PRN ×3 (00:39→14:28)
[2017-06-06] MEDS: DEXMEDETOMIDINE 200 MCG in SODIUM CHLORIDE 0.9% 48 ML IV PRN ×2 (02:50→07:24)
[2017-06-06] MEDS: AMIODARONE 900 MG in DEXTROSE 5% 482 ML IV PRN (03:20)
[2017-06-06 04:00] VITALS: BP 182/78
[2017-06-06] MEDS: ENALAPRILAT 1.25 MG/ML, 2ML IVPush PRN ×3 (04:12→23:29)
[2017-06-06] MEDS: PIPERACILLIN/TAZO/PMX 3.375GM 50 ML IV SCH ×4 (04:15→21:04)
[2017-06-06] MEDS: methylPREDNISolone SOD SUCC 40 MG/ML IVPush SCH ×3 (04:16→19:52)
[2017-06-06] MEDS: HEPARIN 5,000 UNITS/ML, 1ML SQ SCH ×3 (04:16→19:53)
[2017-06-06] MEDS: METOPROLOL TARTRATE 50 MG TABLET PO SCH ×2 (05:49→18:34)
[2017-06-06 06:06] LABS: BASOPHILS # (AUTO) 0.04 x10^3/uL (0-0.1); BASOPHILS % (AUTO) 0 % (0-1); EOSINOPHILS % (AUTO) 0 % (1-7); LYMPHOCYTES # (AUTO) 0.39 x10^3/uL (1-3.4); LYMPHOCYTES % (AUTO) 3 % (22-44); MD NO; MEAN CORPUSCULAR HEMOGLOBIN 32.8 pg (27.5-34.5); MEAN CORPUSCULAR HGB CONC 33.3 g/dL (33.2-36.2); MEAN CORPUSCULAR VOLUME 98.4 fL (81-97); MEAN PLATELET VOLUME 8.1 fL (7.4-10.4); MONOCYTES # (AUTO) 0.72 x10^3/uL (0.2-0.8); MONOCYTES % (AUTO) 5 % (2-9); NEUTROPHILS # (AUTO) 14.18 x10^3/uL (1.8-6.8); NEUTROPHILS % (AUTO) 93 % (42-75); PLATELET COUNT 162 x10^3/uL (130-400); RED BLOOD COUNT 4.89 x10^6/uL (4.38-5.82); RED CELL DISTRIBUTION WIDTH 14.3 % (9.4-14.8)
[2017-06-06 06:14] LABS: CHLORIDE 109 mmol/L (98-107)
[2017-06-06 06:29] LABS: ANION GAP 6 mmol/L (5-15); CALCIUM 8.4 mg/dL (8.5-10.1)
[2017-06-06] MEDS ORDERED: LABETALOL 5MG/ML, 20ML ONE (06:41)
[2017-06-06] MEDS ORDERED: LABETALOL 5MG/ML, 20ML IVPush ONE (07:00)
[2017-06-06] MEDS ORDERED: INSULIN ASPART 100 UNITS/ML, PEN SQ-INSULIN SCH (08:00)
[2017-06-06] MEDS: SENNA/DOCUSATE TABLET PO SCH (09:00)
[2017-06-06] MEDS: LISINOPRIL 20 MG TABLET PO SCH (10:07)
[2017-06-06] MEDS: AMLODIPINE 5 MG TABLET PO SCH (10:07)
[2017-06-06] MEDS: FLUCONAZOLE 200 MG/100 ML 100 ML IV SCH (10:07)
[2017-06-06] MEDS: FAMOTIDINE 40 MG/5 ML ORAL SUSP PO SCH ×2 (10:08→19:53)
[2017-06-06] MEDS: AMIODARONE 200 MG TABLET PO SCH ×2 (10:08→19:53)
[2017-06-06] MEDS: FUROSEMIDE 10 MG/ML ORAL SOL NG SCH ×2 (10:08→19:53)
[2017-06-06] MEDS: ZIPRASIDONE 20MG CAPSULE PO SCH ×2 (10:08→19:53)
[2017-06-06] MEDS: INSULIN ASPART 100 UNITS/ML, PEN SQ-INSULIN SCH ×3 (10:09→21:02)
[2017-06-06] MEDS: INSULIN DETEMIR 100 UNITS/ML, PEN SQ-INSULIN SCH ×2 (10:09→21:03)
[2017-06-06] MEDS: ATORVASTATIN 80 MG TABLET PO SCH (19:53)
[2017-06-06] MEDS: THIAMINE 100 MG, FOLIC ACID 1 MG, MVI ADULT 10 ML in SODIUM CHLORIDE 0.9% 1,000 ML IV SCH (21:08)
[2017-06-07] MEDS: hydrALAzine 20 MG/ML, 1ML IVPush PRN ×3 (02:58→17:23)
[2017-06-07] MEDS: PIPERACILLIN/TAZO/PMX 3.375GM 50 ML IV SCH ×4 (03:00→20:57)
[2017-06-07] MEDS: methylPREDNISolone SOD SUCC 40 MG/ML IVPush SCH (03:00)
[2017-06-07] MEDS: HEPARIN 5,000 UNITS/ML, 1ML SQ SCH ×3 (03:00→20:48)
[2017-06-07 04:00] VITALS: BP 155/65
[2017-06-07 04:25] LABS: BASOPHILS % (AUTO) 1 % (0-1); EOSINOPHILS % (AUTO) 0 % (1-7); LYMPHOCYTES # (AUTO) 0.42 x10^3/uL (1-3.4); LYMPHOCYTES % (AUTO) 2 % (22-44); MD NO; MEAN CORPUSCULAR HEMOGLOBIN 32.4 pg (27.5-34.5); MEAN CORPUSCULAR HGB CONC 32.8 g/dL (33.2-36.2); MEAN CORPUSCULAR VOLUME 98.8 fL (81-97); MEAN PLATELET VOLUME 8.1 fL (7.4-10.4); MONOCYTES # (AUTO) 0.64 x10^3/uL (0.2-0.8); MONOCYTES % (AUTO) 4 % (2-9); NEUTROPHILS # (AUTO) 16.51 x10^3/uL (1.8-6.8); NEUTROPHILS % (AUTO) 93 % (42-75); PLATELET COUNT 175 x10^3/uL (130-400); RED BLOOD COUNT 4.91 x10^6/uL (4.38-5.82); RED CELL DISTRIBUTION WIDTH 14.6 % (9.4-14.8)
[2017-06-07] MEDS: INSULIN ASPART 100 UNITS/ML, PEN SQ-INSULIN SCH ×4 (04:58→20:51)
[2017-06-07] MEDS: METOPROLOL TARTRATE 50 MG TABLET PO SCH (04:59)
[2017-06-07 05:44] LABS: ALBUMIN 2.2 g/dL (3.4-5.0); ANION GAP 7 mmol/L (5-15); CALCIUM 8.2 mg/dL (8.5-10.1); CHLORIDE 111 mmol/L (98-107)
[2017-06-07 06:05] LABS: ALANINE AMINOTRANSFERASE 64 U/L (12-78); ALKALINE PHOSPHATASE 79 U/L (45-117); BILIRUBIN,TOTAL 0.7 mg/dL (0.2-1.0); CREATININE 0.74 mg/dL (0.7-1.3); TOTAL PROTEIN 5.2 g/dL (6.4-8.2)
[2017-06-07] MEDS: FAMOTIDINE 40 MG/5 ML ORAL SUSP PO SCH ×2 (07:42→20:56)
[2017-06-07] MEDS: FUROSEMIDE 10 MG/ML ORAL SOL NG SCH (07:42)
[2017-06-07] MEDS: INSULIN DETEMIR 100 UNITS/ML, PEN SQ-INSULIN SCH ×2 (07:42→20:47)
[2017-06-07] MEDS: ENALAPRILAT 1.25 MG/ML, 2ML IVPush PRN ×2 (08:00→15:33)
[2017-06-07] MEDS: ZIPRASIDONE 20MG CAPSULE PO SCH ×2 (08:01→20:55)
[2017-06-07] MEDS: LISINOPRIL 20 MG TABLET PO SCH ×2 (08:02→20:55)
[2017-06-07] MEDS: AMIODARONE 200 MG TABLET PO SCH ×2 (08:02→20:56)
[2017-06-07] MEDS: SENNA/DOCUSATE TABLET PO SCH (08:02)
[2017-06-07] MEDS: AMLODIPINE 5 MG TABLET PO SCH (08:02)
[2017-06-07] MEDS: FLUCONAZOLE 200 MG/100 ML 100 ML IV SCH (09:03)
[2017-06-07] MEDS: FOLIC ACID 1 MG TABLET PO SCH (10:20)
[2017-06-07] MEDS: THIAMINE 100MG TABLET PO SCH (10:20)
[2017-06-07] MEDS: MULTIVITAMIN 1 TABLET PO SCH (10:20)
[2017-06-07] MEDS: CARVEDILOL 12.5 MG TABLET PO SCH (17:23)
[2017-06-07] MEDS: ATORVASTATIN 80 MG TABLET PO SCH (20:55)
[2017-06-07] MEDS: FUROSEMIDE 40 MG/4 ML IV SCH (20:56)
[2017-06-08] MEDS: ENALAPRILAT 1.25 MG/ML, 2ML IVPush PRN (01:01)
[2017-06-08 04:00] VITALS: BP 174/81
[2017-06-08 04:32] LABS: MEAN CORPUSCULAR HEMOGLOBIN 32.2 pg (27.5-34.5); MEAN CORPUSCULAR HGB CONC 32.8 g/dL (33.2-36.2); MEAN CORPUSCULAR VOLUME 98.2 fL (81-97); MEAN PLATELET VOLUME 8.1 fL (7.4-10.4); PLATELET COUNT 191 x10^3/uL (130-400); RED BLOOD COUNT 4.81 x10^6/uL (4.38-5.82); RED CELL DISTRIBUTION WIDTH 14.6 % (9.4-14.8)
[2017-06-08] MEDS: INSULIN ASPART 100 UNITS/ML, PEN SQ-INSULIN SCH ×4 (04:48→20:49)
[2017-06-08] MEDS: HEPARIN 5,000 UNITS/ML, 1ML SQ SCH ×3 (04:56→19:53)
[2017-06-08] MEDS: CARVEDILOL 12.5 MG TABLET PO SCH ×2 (04:56→17:08)
[2017-06-08] MEDS: PIPERACILLIN/TAZO/PMX 3.375GM 50 ML IV SCH ×3 (04:58→18:01)
[2017-06-08 05:02] LABS: BASOPHILS # (AUTO) 0.11 x10^3/uL (0-0.1); BASOPHILS % (AUTO) 1 % (0-1); EOSINOPHILS % (AUTO) 0 % (1-7); LYMPHOCYTES # (AUTO) 0.73 x10^3/uL (1-3.4); LYMPHOCYTES % (AUTO) 4 % (22-44); MD SCAN; MONOCYTES # (AUTO) 1.17 x10^3/uL (0.2-0.8); MONOCYTES % (AUTO) 6 % (2-9); NEUTROPHILS % (AUTO) 90 % (42-75)
[2017-06-08 07:28] LABS: ALANINE AMINOTRANSFERASE 69 U/L (12-78); ALBUMIN 2.3 g/dL (3.4-5.0); ANION GAP 8 mmol/L (5-15); CALCIUM 8.3 mg/dL (8.5-10.1); CHLORIDE 108 mmol/L (98-107); CREATININE 0.82 mg/dL (0.7-1.3)
[2017-06-08 07:30] LABS: ALKALINE PHOSPHATASE 76 U/L (45-117); BILIRUBIN,TOTAL 0.7 mg/dL (0.2-1.0); TOTAL PROTEIN 5.2 g/dL (6.4-8.2)
[2017-06-08] MEDS: INSULIN DETEMIR 100 UNITS/ML, PEN SQ-INSULIN SCH ×2 (07:48→19:54)
[2017-06-08] MEDS: AMLODIPINE 5 MG TABLET PO SCH (08:36)
[2017-06-08] MEDS: THIAMINE 100MG TABLET PO SCH (08:37)
[2017-06-08] MEDS: AMIODARONE 200 MG TABLET PO SCH ×2 (08:37→20:37)
[2017-06-08] MEDS: FOLIC ACID 1 MG TABLET PO SCH (08:37)
[2017-06-08] MEDS: LISINOPRIL 20 MG TABLET PO SCH ×2 (08:37→20:37)
[2017-06-08] MEDS: FLUCONAZOLE 200 MG/100 ML 100 ML IV SCH (08:38)
[2017-06-08] MEDS: DOXAZOSIN 2MG TABLET PO SCH (08:38)
[2017-06-08] MEDS: SENNA/DOCUSATE TABLET PO SCH (08:38)
[2017-06-08] MEDS: MULTIVITAMIN 1 TABLET PO SCH ×2 (09:00→17:11)
[2017-06-08 09:35] LABS: O2 FLOW 5 L/min
[2017-06-08 13:45] LABS: CULTURE INDICATED? YES; MICROSCOPIC INDICATED
[2017-06-08] MEDS: ATORVASTATIN 80 MG TABLET PO SCH (20:37)
[2017-06-09] MEDS: hydrALAzine 20 MG/ML, 1ML IVPush PRN (00:22)
[2017-06-09] MEDS: PIPERACILLIN/TAZO/PMX 3.375GM 50 ML IV SCH ×5 (00:22→23:57)
[2017-06-09 04:00] VITALS: BP 159/68
[2017-06-09 04:28] LABS: BASOPHILS # (AUTO) 0.01 x10^3/uL (0-0.1); BASOPHILS % (AUTO) 0 % (0-1); EOSINOPHILS # (AUTO) 0.05 x10^3/uL (0-0.4); EOSINOPHILS % (AUTO) 0 % (1-7); LYMPHOCYTES # (AUTO) 1.06 x10^3/uL (1-3.4); LYMPHOCYTES % (AUTO) 9 % (22-44); MD NO; MEAN CORPUSCULAR HEMOGLOBIN 32.3 pg (27.5-34.5); MEAN CORPUSCULAR HGB CONC 32.5 g/dL (33.2-36.2); MEAN CORPUSCULAR VOLUME 99.2 fL (81-97); MEAN PLATELET VOLUME 8.1 fL (7.4-10.4); MONOCYTES # (AUTO) 0.85 x10^3/uL (0.2-0.8); MONOCYTES % (AUTO) 7 % (2-9); NEUTROPHILS # (AUTO) 9.45 x10^3/uL (1.8-6.8); NEUTROPHILS % (AUTO) 83 % (42-75); PLATELET COUNT 142 x10^3/uL (130-400); RED BLOOD COUNT 4.09 x10^6/uL (4.38-5.82); RED CELL DISTRIBUTION WIDTH 14.4 % (9.4-14.8)
[2017-06-09 04:43] LABS: ALBUMIN 2.1 g/dL (3.4-5.0); ANION GAP 2 mmol/L (5-15); CHLORIDE 111 mmol/L (98-107)
[2017-06-09 04:47] LABS: ALANINE AMINOTRANSFERASE 63 U/L (12-78); ALKALINE PHOSPHATASE 51 U/L (45-117); BILIRUBIN,TOTAL 0.6 mg/dL (0.2-1.0); CREATININE 0.63 mg/dL (0.7-1.3); TOTAL PROTEIN 4.5 g/dL (6.4-8.2)
[2017-06-09] MEDS: HEPARIN 5,000 UNITS/ML, 1ML SQ SCH ×3 (05:11→20:06)
[2017-06-09] MEDS: CARVEDILOL 12.5 MG TABLET PO SCH ×2 (05:55→17:45)
[2017-06-09] MEDS: INSULIN ASPART 100 UNITS/ML, PEN SQ-INSULIN SCH ×4 (06:03→21:21)
[2017-06-09] MEDS: INSULIN DETEMIR 100 UNITS/ML, PEN SQ-INSULIN SCH ×2 (08:03→20:08)
[2017-06-09] MEDS: FUROSEMIDE 40 MG/4 ML IV SCH ×2 (09:00→16:50)
[2017-06-09] MEDS: SENNA/DOCUSATE TABLET PO SCH (09:00)
[2017-06-09] MEDS: FLUCONAZOLE 200 MG/100 ML 100 ML IV SCH (09:00)
[2017-06-09] MEDS: AMIODARONE 200 MG TABLET PO SCH ×2 (09:22→21:21)
[2017-06-09] MEDS: AMLODIPINE 5 MG TABLET PO SCH (09:23)
[2017-06-09] MEDS: FOLIC ACID 1 MG TABLET PO SCH (09:23)
[2017-06-09] MEDS: MULTIVITAMIN 1 TABLET PO SCH (09:23)
[2017-06-09] MEDS: LISINOPRIL 20 MG TABLET PO SCH ×2 (09:24→21:21)
[2017-06-09] MEDS: THIAMINE 100MG TABLET PO SCH (09:24)
[2017-06-09] MEDS: DOXAZOSIN 2MG TABLET PO SCH (09:26)
[2017-06-09] MEDS: ATORVASTATIN 80 MG TABLET PO SCH (21:20)
[2017-06-10] MEDS: HEPARIN 5,000 UNITS/ML, 1ML SQ SCH (03:35)
[2017-06-10 04:00] VITALS: BP 121/58
[2017-06-10 04:15] LABS: BASOPHILS # (AUTO) 0.01 x10^3/uL (0-0.1); BASOPHILS % (AUTO) 0 % (0-1); EOSINOPHILS # (AUTO) 0.14 x10^3/uL (0-0.4); EOSINOPHILS % (AUTO) 2 % (1-7); LYMPHOCYTES # (AUTO) 0.83 x10^3/uL (1-3.4); LYMPHOCYTES % (AUTO) 9 % (22-44); MD NO; MEAN CORPUSCULAR HEMOGLOBIN 32.7 pg (27.5-34.5); MEAN CORPUSCULAR HGB CONC 32.9 g/dL (33.2-36.2); MEAN CORPUSCULAR VOLUME 99.2 fL (81-97); MEAN PLATELET VOLUME 7.9 fL (7.4-10.4); MONOCYTES # (AUTO) 0.66 x10^3/uL (0.2-0.8); MONOCYTES % (AUTO) 7 % (2-9); NEUTROPHILS % (AUTO) 83 % (42-75); PLATELET COUNT 127 x10^3/uL (130-400); RED CELL DISTRIBUTION WIDTH 14.1 % (9.4-14.8)
[2017-06-10] MEDS: CARVEDILOL 12.5 MG TABLET PO SCH (05:47)
[2017-06-10] MEDS: INSULIN ASPART 100 UNITS/ML, PEN SQ-INSULIN SCH ×4 (05:49→20:57)
[2017-06-10] MEDS: PIPERACILLIN/TAZO/PMX 3.375GM 50 ML IV SCH ×3 (05:49→17:57)
[2017-06-10] MEDS: FUROSEMIDE 40 MG/4 ML IV SCH ×2 (07:12→17:42)
[2017-06-10] MEDS: INSULIN DETEMIR 100 UNITS/ML, PEN SQ-INSULIN SCH (07:22)
[2017-06-10] MEDS: THIAMINE 100MG TABLET PO SCH (08:28)
[2017-06-10] MEDS: SENNA/DOCUSATE TABLET PO SCH (08:28)
[2017-06-10] MEDS: MULTIVITAMIN 1 TABLET PO SCH (08:28)
[2017-06-10] MEDS: FOLIC ACID 1 MG TABLET PO SCH (08:28)
[2017-06-10] MEDS: AMIODARONE 200 MG TABLET PO SCH ×2 (08:29→20:54)
[2017-06-10] MEDS: DOXAZOSIN 2MG TABLET PO SCH (08:29)
[2017-06-10] MEDS: AMLODIPINE 5 MG TABLET PO SCH (08:29)
[2017-06-10] MEDS: LISINOPRIL 20 MG TABLET PO SCH ×2 (08:29→20:55)
[2017-06-10] MEDS: FLUCONAZOLE 200 MG/100 ML 100 ML IV SCH (09:38)
[2017-06-10 10:36] LABS: HIT RESULT NEGATIVE (NEGATIVE)
[2017-06-10] MEDS: ALBUTEROL/IPRATROPIUM 2.5MG/0.5MG, 3 ML INLINE PRN (16:52)
[2017-06-10] MEDS: CARVEDILOL 6.25 MG TABLET PO SCH (17:57)
[2017-06-10 18:04] LABS: ANION GAP 3 mmol/L (5-15); CHLORIDE 108 mmol/L (98-107); CREATININE 0.53 mg/dL (0.7-1.3)
[2017-06-10] MEDS ORDERED: ALBUTEROL/IPRATROPIUM 2.5MG/0.5MG, 3 ML NPPB PRN (20:00)
[2017-06-10] MEDS: ATORVASTATIN 80 MG TABLET PO SCH (20:54)
[2017-06-11] MEDS: PIPERACILLIN/TAZO/PMX 3.375GM 50 ML IV SCH ×4 (00:26→19:03)
[2017-06-11 04:17] LABS: BASOPHILS # (AUTO) 0.04 x10^3/uL (0-0.1); BASOPHILS % (AUTO) 0 % (0-1); EOSINOPHILS # (AUTO) 0.17 x10^3/uL (0-0.4); EOSINOPHILS % (AUTO) 2 % (1-7); LYMPHOCYTES % (AUTO) 11 % (22-44); MD NO; MEAN CORPUSCULAR HEMOGLOBIN 31.6 pg (27.5-34.5); MEAN CORPUSCULAR HGB CONC 32.4 g/dL (33.2-36.2); MEAN CORPUSCULAR VOLUME 97.6 fL (81-97); MEAN PLATELET VOLUME 8.6 fL (7.4-10.4); MONOCYTES # (AUTO) 0.62 x10^3/uL (0.2-0.8); MONOCYTES % (AUTO) 7 % (2-9); NEUTROPHILS # (AUTO) 7.15 x10^3/uL (1.8-6.8); NEUTROPHILS % (AUTO) 80 % (42-75); PLATELET COUNT 131 x10^3/uL (130-400); RED BLOOD COUNT 3.92 x10^6/uL (4.38-5.82); RED CELL DISTRIBUTION WIDTH 13.7 % (9.4-14.8)
[2017-06-11 04:34] LABS: ALBUMIN 2.2 g/dL (3.4-5.0); ANION GAP 0 mmol/L (5-15); CHLORIDE 103 mmol/L (98-107)
[2017-06-11 04:37] LABS: ALANINE AMINOTRANSFERASE 69 U/L (12-78); ALKALINE PHOSPHATASE 55 U/L (45-117); CREATININE 0.65 mg/dL (0.7-1.3)
[2017-06-11] MEDS: CARVEDILOL 6.25 MG TABLET PO SCH ×2 (05:45→21:12)
[2017-06-11] MEDS: INSULIN ASPART 100 UNITS/ML, PEN SQ-INSULIN SCH ×3 (07:00→21:00)
[2017-06-11] MEDS: FUROSEMIDE 40 MG/4 ML IV SCH ×2 (08:30→19:03)
[2017-06-11] MEDS: THIAMINE 100MG TABLET PO SCH (08:41)
[2017-06-11] MEDS: DOXAZOSIN 2MG TABLET PO SCH (08:41)
[2017-06-11] MEDS: MULTIVITAMIN 1 TABLET PO SCH (08:41)
[2017-06-11] MEDS: FOLIC ACID 1 MG TABLET PO SCH (08:41)
[2017-06-11] MEDS: AMIODARONE 200 MG TABLET PO SCH ×2 (08:42→21:12)
[2017-06-11] MEDS: SENNA/DOCUSATE TABLET PO SCH (08:42)
[2017-06-11] MEDS: LISINOPRIL 20 MG TABLET PO SCH ×2 (08:42→21:12)
[2017-06-11] MEDS: AMLODIPINE 5 MG TABLET PO SCH (08:42)
[2017-06-11] MEDS ORDERED: HALOPERIDOL 5 MG/ML IVPush ONE (09:00)
[2017-06-11] MEDS: POTASSIUM CHLORIDE 20 MEQ TAB.ER.PRT PO SCH ×2 (09:22→12:50)
[2017-06-11] MEDS ORDERED: HALOPERIDOL 5 MG/ML IV ONE (10:00)
[2017-06-11] MEDS: HEPARIN 5,000 UNITS/ML, 1ML SQ SCH ×2 (12:50→21:12)
[2017-06-11] MEDS: ZIPRASIDONE 20 MG INJ IM PRN ×2 (13:48→16:14)
[2017-06-11] MEDS ORDERED: INSULIN LISPRO 100 UNITS/ML, PEN SQ-INSULIN SCH (16:00)
[2017-06-11] MEDS: ATORVASTATIN 80 MG TABLET PO SCH (21:12)
[2017-06-11] MEDS: hydrALAzine 20 MG/ML, 1ML IVPush PRN (23:19)
[2017-06-11] MEDS: morphine SULFATE 10 MG/ML, 1ML IVPush PRN (23:23)
[2017-06-12] MEDS: PIPERACILLIN/TAZO/PMX 3.375GM 50 ML IV SCH ×4 (00:38→20:48)
[2017-06-12 03:59] VITALS: BP 120/40
[2017-06-12] MEDS: HEPARIN 5,000 UNITS/ML, 1ML SQ SCH ×3 (04:30→20:48)
[2017-06-12 05:35] LABS: BASOPHILS # (AUTO) 0.02 x10^3/uL (0-0.1); BASOPHILS % (AUTO) 0 % (0-1); EOSINOPHILS # (AUTO) 0.13 x10^3/uL (0-0.4); EOSINOPHILS % (AUTO) 2 % (1-7); LYMPHOCYTES # (AUTO) 0.86 x10^3/uL (1-3.4); LYMPHOCYTES % (AUTO) 11 % (22-44); MD NO; MEAN CORPUSCULAR HEMOGLOBIN 32.8 pg (27.5-34.5); MEAN CORPUSCULAR HGB CONC 33.4 g/dL (33.2-36.2); MEAN CORPUSCULAR VOLUME 98.2 fL (81-97); MEAN PLATELET VOLUME 8.1 fL (7.4-10.4); MONOCYTES # (AUTO) 0.58 x10^3/uL (0.2-0.8); MONOCYTES % (AUTO) 7 % (2-9); NEUTROPHILS # (AUTO) 6.29 x10^3/uL (1.8-6.8); NEUTROPHILS % (AUTO) 80 % (42-75); PLATELET COUNT 113 x10^3/uL (130-400); RED BLOOD COUNT 3.53 x10^6/uL (4.38-5.82); RED CELL DISTRIBUTION WIDTH 14.1 % (9.4-14.8)
[2017-06-12] MEDS: CARVEDILOL 6.25 MG TABLET PO SCH ×2 (05:46→17:00)
[2017-06-12 05:52] LABS: ANION GAP 2 mmol/L (5-15); CALCIUM 7.8 mg/dL (8.5-10.1); CHLORIDE 106 mmol/L (98-107); CREATININE 0.75 mg/dL (0.7-1.3)
[2017-06-12] MEDS: INSULIN ASPART 100 UNITS/ML, PEN SQ-INSULIN SCH ×4 (06:12→21:01)
[2017-06-12] MEDS: FUROSEMIDE 40 MG/4 ML IV SCH ×2 (08:57→17:00)
[2017-06-12] MEDS: MULTIVITAMIN 1 TABLET PO SCH (08:57)
[2017-06-12] MEDS: LISINOPRIL 20 MG TABLET PO SCH ×2 (08:57→20:48)
[2017-06-12] MEDS: AMIODARONE 200 MG TABLET PO SCH ×2 (08:57→20:48)
[2017-06-12] MEDS: THIAMINE 100MG TABLET PO SCH (08:58)
[2017-06-12] MEDS: FOLIC ACID 1 MG TABLET PO SCH (08:58)
[2017-06-12] MEDS: DOXAZOSIN 2MG TABLET PO SCH (08:58)
[2017-06-12] MEDS: AMLODIPINE 5 MG TABLET PO SCH (08:58)
[2017-06-12] MEDS: SENNA/DOCUSATE TABLET PO SCH (08:59)
[2017-06-12] MEDS: ATORVASTATIN 80 MG TABLET PO SCH (20:48)
[2017-06-12] MEDS: morphine SULFATE 10 MG/ML, 1ML IVPush PRN (21:48)
[2017-06-13] MEDS: PIPERACILLIN/TAZO/PMX 3.375GM 50 ML IV SCH ×2 (01:40→08:33)
[2017-06-13 03:41] VITALS: BP 114/42
[2017-06-13 04:25] LABS: ANION GAP 3 mmol/L (5-15); CALCIUM 7.7 mg/dL (8.5-10.1); CHLORIDE 103 mmol/L (98-107)
[2017-06-13 04:31] LABS: MEAN CORPUSCULAR HEMOGLOBIN 32.6 pg (27.5-34.5); MEAN CORPUSCULAR HGB CONC 33.5 g/dL (33.2-36.2); MEAN CORPUSCULAR VOLUME 97.4 fL (81-97); RED BLOOD COUNT 3.28 x10^6/uL (4.38-5.82)
[2017-06-13 04:57] LABS: BASOPHILS # (AUTO) 0.02 x10^3/uL (0-0.1); BASOPHILS % (AUTO) 0 % (0-1); EOSINOPHILS % (AUTO) 1 % (1-7); LYMPHOCYTES # (AUTO) 0.82 x10^3/uL (1-3.4); LYMPHOCYTES % (AUTO) 10 % (22-44); MD SCAN; MEAN PLATELET VOLUME 8.6 fL (7.4-10.4); MONOCYTES % (AUTO) 6 % (2-9); NEUTROPHILS # (AUTO) 6.74 x10^3/uL (1.8-6.8); NEUTROPHILS % (AUTO) 82 % (42-75); PLATELET COUNT 105 x10^3/uL (130-400)
[2017-06-13] MEDS: HEPARIN 5,000 UNITS/ML, 1ML SQ SCH ×2 (05:30→11:13)
[2017-06-13] MEDS: CARVEDILOL 6.25 MG TABLET PO SCH (06:32)
[2017-06-13] MEDS: INSULIN ASPART 100 UNITS/ML, PEN SQ-INSULIN SCH ×2 (06:34→11:14)
[2017-06-13] MEDS: FUROSEMIDE 40 MG/4 ML IV SCH (08:33)
[2017-06-13] MEDS: SENNA/DOCUSATE TABLET PO SCH (09:00)
[2017-06-13] MEDS: LISINOPRIL 20 MG TABLET PO SCH (09:24)
[2017-06-13] MEDS: FOLIC ACID 1 MG TABLET PO SCH (09:24)
[2017-06-13] MEDS: MULTIVITAMIN 1 TABLET PO SCH (09:24)
[2017-06-13] MEDS: THIAMINE 100MG TABLET PO SCH (09:24)
[2017-06-13] MEDS: AMIODARONE 200 MG TABLET PO SCH (09:24)
[2017-06-13] MEDS: DOXAZOSIN 2MG TABLET PO SCH (09:25)
[2017-06-13] MEDS: AMLODIPINE 5 MG TABLET PO SCH (09:25)
[2017-06-13] MEDS ORDERED: LISI-167 PO (09:52)
[2017-06-13] MEDS ORDERED: THIA100T6 PO (09:52)
[2017-06-13] MEDS ORDERED: FOLI-17 PO (09:52)
[2017-06-13] MEDS ORDERED: MULT1TAB60 PO (09:52)
[2017-06-13] MEDS ORDERED: AMIO200T42 PO (09:52)
[2017-06-13] MEDS ORDERED: HEPA50002 SQ (09:52)
[2017-06-13] MEDS ORDERED: AMLO5TAB2 PO (09:52)
[2017-06-13] MEDS ORDERED: CARV6.2512 PO (09:52)
[2017-06-13] MEDS ORDERED: DOXA2TAB9 PO (09:52)
[2017-06-13] MEDS ORDERED: INSU100I18 SQ-INSULIN (09:52)
[2017-06-13] MEDS ORDERED: FURO-93 PO (09:53)
[2017-06-13] MEDS ORDERED: Ertapenem IVPB (10:02)
[2017-06-13] MEDS ORDERED: ERTAPENEM 1 GM in SODIUM CHLORIDE 0.9% 50 ML IV SCH (10:30)
[2017-06-13] MEDS ORDERED: FLU VACC QS2017-18 (36MOS+) UP/PF 0.5 ML IM-VACC ONE (11:30)
== END 2017-06-13 12:15 | DRG 870 ==
LOC: ED 22:22 → EDIP 23:43 → CCU 05-31 01:18
PROVIDERS: ADMIT Internal Medicine; ATTEND Internal Medicine
PROC: 5A1955Z Respiratory Ventilation, Greater than 96 Consecutive Hours (ICD-10-PCS; principal; 2017-05-30)
PROC: 0BH17EZ Insertion of Endotracheal Airway into Trachea, Via Natural or Artificial Opening (ICD-10-PCS; 2017-05-30)
PROC: 0W993ZZ Drainage of Right Pleural Cavity, Percutaneous Approach (ICD-10-PCS; 2017-06-02)
PROC: 0W9930Z Drainage of Right Pleural Cavity with Drainage Device, Percutaneous Approach (ICD-10-PCS; 2017-06-02)
PROC: 0T9B70Z Drainage of Bladder with Drainage Device, Via Natural or Artificial Opening (ICD-10-PCS; 2017-06-02)
DX: A41.9 Sepsis, unspecified organism (principal); J96.21 Acute and chronic respiratory failure with hypoxia; J69.0 Pneumonitis due to inhalation of food and vomit; Z99.11 Dependence on respirator [ventilator] status; J90 Pleural effusion, not elsewhere classified; J44.0 Chronic obstructive pulmonary disease with (acute) lower respiratory infection; G93.41 Metabolic encephalopathy; J96.22 Acute and chronic respiratory failure with hypercapnia; J44.1 Chronic obstructive pulmonary disease with (acute) exacerbation; J93.9 Pneumothorax, unspecified; Z68.43 Body mass index [BMI] 50.0-59.9, adult; I27.29 Other secondary pulmonary hypertension; D69.6 Thrombocytopenia, unspecified; I48.91 Unspecified atrial fibrillation; E78.5 Hyperlipidemia, unspecified; I10 Essential (primary) hypertension; E66.01 Morbid (severe) obesity due to excess calories; R73.9 Hyperglycemia, unspecified; I73.9 Peripheral vascular disease, unspecified; Z51.5 Encounter for palliative care; I27.81 Cor pulmonale (chronic); F29 Unspecified psychosis not due to a substance or known physiological condition; R65.20 Severe sepsis without septic shock; T38.0X5A Adverse effect of glucocorticoids and synthetic analogues, initial encounter; Y92.89 Other specified places as the place of occurrence of the external cause; Z80.0 Family history of malignant neoplasm of digestive organs; Z87.01 Personal history of pneumonia (recurrent); Z87.891 Personal history of nicotine dependence; Z99.81 Dependence on supplemental oxygen
CPT/HCPCS: 31500; 32551; 32555; 32557; 36415; 36600; 51702; 70450; 71045; 74018; 74230; 80048; 80053; 80061; 80202; 81001; 81003; 82040; 82607; 82746; 82803; 82945; 82947; 82962; 83036; 83605; 83615; 83735; 83880; 84155; 84157; 84439; 84443; 84478; 84484; 85025; 85610; 85730; 86022; 87040; 87070; 87077; 87081; 87086; 87106; 87107; 87186; 87205; 87324; 87400; 89051; 90686; 93005; 94002; 94003; 94640; 96361; 96365; 96367; 96375; J0456; J0692; J1335; J1644; J1815; J1940; J2250; J2543; J2704; J3370; J3411; J3486; J3490; J7620; C1729; C1769; J0282; J0330; J0360; J1160; J1450; J1630; J2270; J2920; J2930; J7030; J7040; J7050; J7060; J7512; S0028